=== PATIENT | female | born 1985 | race Caucasian/White ===

== ENCOUNTER 2017-09-25 09:17 | Day surgery (SDC) | payer BC ==
[~2017-09-25 09:17] MED LIST: Lactated Ringers 1,000 ML IV SCH; Sodium Chloride 0.9% 10 ML Syringe FLUSH PRN; Sodium Chloride 0.9% 2.5 ML Syringe FLUSH PRN
--- NOTE | 2017-09-25 09:54 | PCM.PREANE ---
Preanesthetic Assessment - Anesthesia/Transfusion/Family Hx Anesthesia History: Prior Anesthesia Without Reaction Transfusion History: No Prior Transfusion(s) Intubation History: Unknown - Review of Systems General: No Symptoms Pulmonary: No Symptoms Cardiovascular: No Symptoms Gastrointestinal: No Symptoms Neurological: No Symptoms Other: Reports: None - Physical Assessment NPO Status Date: 09/24/17 NPO Status Time: 22:00 Height: 5 ft 3 in Weight: 76.204 kg ASA Class: 1 Mental Status: Alert & Oriented x3 Airway Class: Mallampati = 2 Dentition: Reports: Normal Dentition Thyro-Mental Finger Breadths: 3 Mouth Opening Finger Breadths: 3 ROM/Head Extension: Full Lungs: Clear to Auscultation, Normal Respiratory Effort Cardiovascular: Regular Rate, Regular Rhythm - Allergies Allergies/Adverse Reactions: Allergies Allergy/AdvReac Type Severity Reaction Status Date / Time No Known Allergies Allergy Verified 09/21/17 12:37 - Acknowledgements Anesthesia Type Planned: MAC Pt an Appropriate Candidate for the Planned Anesthesia: Yes Alternatives and Risks of Anesthesia Discussed w Pt/Guardian: Yes Pt/Guardian Understands and Agrees with Anesthesia Plan: Yes PreAnesthesia Questionnaire HEENT History: Reports: Impaired Vision Other HEENT History: Red Hair Cardiovascular History: Reports: None Respiratory History: Reports: Other (See Below) (SO[place] was evaulated and no findings) Gastrointestinal History: Reports: None Genitourinary History: Reports: None [employer] O[employer] RECEPTIONIST History: Reports: Musculoskeletal History: Reports: None Neurological History: Reports: Other (See Below) Other Neuro History: hx of motion sickness Psychiatric History: Reports: Anxiety, Depression Endocrine/Metabolic History: Reports: None Hematologic History: Reports: None Immunologic History: Reports: None Oncologic (Cancer) History: Reports: None Dermatologic History: Reports: None - Infectious Disease History Infectious Disease History: Reports: None - Past Surgical History HEENT Surgical History: Reports: LASIK, Oral Surgery Other HEENT Surgeries/Procedures: wisdom teeth - SUBSTANCE USE Smoking Status *Q: Never Smoker Recreational Drug Use History: No - HOME MEDS Home Medications: Home Meds FLUoxetine HCl [Fluoxetine HCl] 40 mg PO QAM 09/21/17 [History] PNV95/Ferrous Fumarate/FA [ Tablet] 1 tab PO DAILY 09/21/17 [History] - CURRENT (IN HOUSE) MEDS Current Meds: Current Medications Lactated Ringer's (Ringers, Lactated) 1,000 mls @ 125 mls/hr IV ASDIRECTED KRISSY Sodium Chloride (Saline Flush) 10 ml FLUSH ASDIRECTED PRN PRN Reason: Keep Vein Open Sodium Chloride (Saline Flush) 2.5 ml FLUSH ASDIRECTED PRN PRN Reason: Keep Vein Open
[2017-09-25] MEDS ORDERED: Ondansetron 4 MG/2 ML SDV ONE (11:49)
[2017-09-25] MEDS ORDERED: Midazolam 1 MG/ML 2 ML SDV ONE (11:50)
[2017-09-25] MEDS ORDERED: Propofol 200 MG/20 ML SDV ONE (11:50)
[2017-09-25] MEDS ORDERED: fentaNYL 100 MCG/2 ML SDV ONE (11:50)
[2017-09-25] MEDS ORDERED: Acetaminophen/oxyCODONE 325-5 MG Tab PO PRN (13:23)
--- NOTE | 2017-09-25 13:27 | PCM.OPNOTE ---
- General Post-Op/Procedure Note Date of Surgery/Procedure: 09/25/17 Operative Procedure(s): Loop electrosurgical excision procedure, LEEP Findings: Ectocervex stained deeply with application of Lugols iodine. Pre Op Diagnosis: JORGE 2, moderate dysplasia Post-Op Diagnosis: Same Anesthesia Technique: MAC Primary Surgeon: Joselin Nicole EBL in mLs: 5 Complications: None Known Condition: Good
--- NOTE | 2017-09-25 13:38 | PCM.POSTAN ---
POST ANESTHESIA ASSESSMENT - MENTAL STATUS Mental Status: Alert - VITAL SIGNS Pulse Rate: 60 SaO2: 96 Resp Rate: 16 Blood Pressure: 90/52 - RESPIRATORY Respiratory Status: Respiratory Rate WNL - CARDIOVASCULAR CV Status: Pulse Rate WNL - GASTROINTESTINAL GI Status: No Symptoms - PAIN Pain Score: 0 - POST OP HYDRATION Hydration Status: Adequate & Stable (Did well. No problems post.)
--- NOTE | 2017-09-25 14:06 | PCM48HPAN ---
Post Anesthesia Note - EVALUATION WITHIN 48HRS OF ANESTHETIC Vital Signs in Normal Range: Yes Patient Participated in Evaluation: Yes Respiratory Function Stable: Yes Airway Patent: Yes Cardiovascular Function Stable: Yes Hydration Status Stable: Yes Pain Control Satisfactory: Yes Nausea and Vomiting Control Satisfactory: Yes Mental Status Recovered: Yes Pulse Rate: 60 Resp Rate: 16 Blood Pressure: 90/52
[2017-09-25 14:11] VITALS: BP 110/62
--- NOTE | 2017-09-26 07:57 | OR ---
SURGEON: Joselin Nicole MD DATE OF PROCEDURE: 09/25/2017 PREOPERATIVE DIAGNOSIS: Moderate cervical dysplasia (cervical intraepithelial neoplasia II). POSTOPERATIVE DIAGNOSIS: Moderate cervical dysplasia (cervical intraepithelial neoplasia II). PROCEDURE: Loop electrosurgical excision procedure, LEEP. ANESTHESIA: MAC. ESTIMATED BLOOD LOSS: Less than 5 mL. COMPLICATIONS: None. INDICATION: The patient is a 32-year-old, evaluated in the office for abnormal Pap smear ASCUS with positive HR HPV. Colposcopy-directed biopsies were consistent with moderate dysplasia, JORGE II. These findings, including management options, were discussed with the patient, and she consented to proceed with operative procedure in the form of a LEEP. The risks of this procedure were explained to her in detail including, but not limited to infection, bleeding, inability to excise the lesion completely, which may lead to further procedures, injury to adjacent structures. Possibility of long-term risk of delivery due to cervical insufficiency was also discussed. Understanding these risks, the patient accepted to proceed with the surgery. Appropriate consent was obtained. DESCRIPTION OF PROCEDURE: The patient was taken to the operating room. Induction of MAC anesthesia was performed without difficulty. After appropriate level of anesthesia, she was placed in dorsolithotomy position, prepped and draped in the usual sterile fashion for LEEP procedure. A time-out was held. Examination under anesthesia revealed a normal-sized anteverted uterus. No palpable adnexal masses noted. No parametrial or paracervical nodularities were palpable. A bivalve coated insulated speculum was then placed into the vagina with good visualization of the cervix obtained. The cervix was then painted with Lugol's iodine, and as expected, ectocervix stained deeply. Paracervical block was performed with 1% lidocaine with epinephrine in 1:100,000 dilution. Thereafter, using the loop size of 15 x 15 mm, standard LEEP procedure was performed. The cervical specimen was removed in 2 pieces with one tagged at the 12 and 6 o'clock respectively. Endocervical curetting was then performed with a curette and a sample was collected with the Cytobrush. Hemostasis was achieved with cautery ball and the Monsel solution. Instruments were removed from the patient's vagina. Instrument, sponge count, and needle counts were correct at the end of the procedure. The patient tolerated the procedure well and was taken to the recovery room in a stable condition. ADUMVIV / MODL /[id number] MTDD
== END 2017-09-25 14:10 | disposition home or self-care (01) ==
LOC: MW.SDS 09:17
PROVIDERS: ATTEND Obstetrics & Gynecology
DX: N87.1 Moderate cervical dysplasia (principal); F32.9 Major depressive disorder, single episode, unspecified; F41.9 Anxiety disorder, unspecified; E55.9 Vitamin D deficiency, unspecified; F34.1 Dysthymic disorder; Z79.899 Other long term (current) drug therapy
CPT/HCPCS: 36415; 57522; 81025; 85027; 88305; J2250; J2405; J2704; J3010; J7120; 00940

== ENCOUNTER 2021-03-24 04:06 | Inpatient (IN) | payer BC ==
[2021-03-24] MEDS ORDERED: Water For Irrigation,Sterile 1,000 ML Container IRR PRN (04:13)
[2021-03-24] MEDS ORDERED: Carboprost Tromethamine 250 MCG/1 ML Amp IM PRN (04:13)
[2021-03-24] MEDS ORDERED: Terbutaline 1 MG/ML SDV SUBCUT PRN (04:13)
[2021-03-24] MEDS ORDERED: Misoprostol 25 MCG (1/4 of 100 MCG) Tab VAG PRN (04:13)
[2021-03-24] MEDS ORDERED: Sodium Chloride 0.9% 20 ML SDV IV PRN (04:13)
[2021-03-24] MEDS ORDERED: Misoprostol 200 MCG Tab PO PRN (04:13)
[2021-03-24] MEDS ORDERED: Methylergonovine 0.2 MG/1 ML Amp IM PRN ×2 (04:13→22:53)
[2021-03-24] MEDS ORDERED: Nalbuphine 10 MG/1 ML Vial IVPUSH PRN (04:13)
[2021-03-24] MEDS ORDERED: Sodium Chloride 0.9% 10 ML Syringe FLUSH PRN (04:13)
[2021-03-24] MEDS ORDERED: Tranexamic Acid 1,000 MG in Sodium Chloride 0.9% 100 ML IV PRN ×2 (04:13→22:53)
[2021-03-24] MEDS ORDERED: Lidocaine 1% 50 ML MDV INJECT PRN (04:13)
[2021-03-24] MEDS ORDERED: Butorphanol 1 MG/ML SDV IVPUSH PRN (04:13)
[2021-03-24] MEDS ORDERED: Sodium Chloride 0.9% 2.5 ML Syringe FLUSH PRN (04:13)
[2021-03-24] MEDS ORDERED: Oxytocin/0.9 % Sodium Chloride 30 UNIT/500 ML BAG IV SCH ×2 (04:15)
[2021-03-24] MEDS: Lactated Ringers 1,000 ML IV SCH ×2 (04:41→15:32)
[2021-03-24] MEDS ORDERED: ePHEDrine 50 MG/ML SDV IVPUSH PRN ×2 (09:18)
[2021-03-24] MEDS ORDERED: Ropivacaine HCl/PF 200 MG in Premix Bag 1 BAG EPIDUR SCH (09:30)
[2021-03-24] MEDS ORDERED: Ondansetron 4 MG/2 ML SDV IVPUSH PRN (19:00)
[2021-03-24] MEDS ORDERED: Ibuprofen 400 MG Tab PO PRN (22:53)
[2021-03-24] MEDS ORDERED: Acetaminophen 500 MG Tab PO PRN (22:53)
[2021-03-24] MEDS ORDERED: Bisacodyl 10 MG Supp RECTAL PRN (22:53)
[2021-03-24] MEDS ORDERED: Benzocaine/Menthol 20%-0.5% Spray 78 GM Cannister TOP PRN (22:53)
[2021-03-24] MEDS ORDERED: Witch Hazel Medicated Pads 40/Jar TOP PRN (22:53)
[2021-03-25] MEDS: Ibuprofen 800 MG Tab PO PRN ×2 (01:04→23:34)
[2021-03-25] MEDS: Lanolin 100% Cream 7 GM Tube TOP PRN ×2 (01:05→21:00)
[2021-03-25] MEDS: Prenatal Multivitamin with Calcium/Folic Acid/Iron Tab PO SCH (10:44)
[2021-03-25] MEDS: Docusate Sodium 100 MG Cap PO PRN ×2 (11:21→23:34)
[2021-03-25] MEDS: Acetaminophen 500 MG Tab PO PRN ×2 (11:21→20:59)
[2021-03-25] MEDS: FLUoxetine 20 MG Cap PO SCH (17:14)
[2021-03-26] MEDS: Acetaminophen 500 MG Tab PO PRN ×3 (05:52→20:06)
[2021-03-26] MEDS: Prenatal Multivitamin with Calcium/Folic Acid/Iron Tab PO SCH (08:53)
[2021-03-26] MEDS: Ibuprofen 800 MG Tab PO PRN ×2 (08:54→22:23)
[2021-03-26] MEDS: FLUoxetine 20 MG Cap PO SCH (08:54)
[2021-03-26] MEDS: Docusate Sodium 100 MG Cap PO PRN (12:51)
[2021-03-26 20:55] VITALS: BP 104/50; PULSE 67
== END 2021-03-26 23:40 | disposition home or self-care (01) | DRG 560 ==
LOC: MW.OBCHECK 04:06 → MW.OB 04:08 → MW.OBCHECK 04:14 → OBSVTOIN 22:17 → MW.OB 03-25
PROVIDERS: ADMIT Obstetrics & Gynecology; ATTEND Obstetrics & Gynecology
PROC: 10E0XZZ Delivery of Products of Conception, External Approach (ICD-10-PCS; principal; 2021-03-24)
PROC: 3E0R3BZ Introduction of Anesthetic Agent into Spinal Canal, Percutaneous Approach (ICD-10-PCS; 2021-03-24)
PROC: 00HU33Z Insertion of Infusion Device into Spinal Canal, Percutaneous Approach (ICD-10-PCS; 2021-03-24)
PROC: 3E0P7VZ Introduction of Hormone into Female Reproductive, Via Natural or Artificial Opening (ICD-10-PCS; 2021-03-24)
PROC: 10907ZC Drainage of Amniotic Fluid, Therapeutic from Products of Conception, Via Natural or Artificial Opening (ICD-10-PCS; 2021-03-24)
PROC: 3E033VJ Introduction of Other Hormone into Peripheral Vein, Percutaneous Approach (ICD-10-PCS; 2021-03-24)
PROC: 10H07YZ Insertion of Other Device into Products of Conception, Via Natural or Artificial Opening (ICD-10-PCS; 2021-03-24)
DX: O24.424 Gestational diabetes mellitus in childbirth, insulin controlled (principal); O77.0 Labor and delivery complicated by meconium in amniotic fluid; Z3A.39 39 weeks gestation of pregnancy; Z37.0 Single live birth; O76 Abnormality in fetal heart rate and rhythm complicating labor and delivery; O70.1 Second degree perineal laceration during delivery; Z20.822 Contact with and (suspected) exposure to COVID-19
CPT/HCPCS: 36415; 51702; 59025; 59409; 82803; 82947; 85014; 85018; 85027; 86592; 86850; 86900; 86901; A9270-GY; J2405; J2590; J2795; J7120; U0002